=== PATIENT | female | born 1985 | race Two or more races ===

== ENCOUNTER 2021-05-11 12:14 | Emergency (ER) | payer SELFPAY ==
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
--- NOTE | 2021-05-12 06:41 | US ---
Left lower extremity deep venous ultrasound: Duplex and color Doppler evaluation was obtained of the left common femoral, proximal greater saphenous, superficial femoral, popliteal, posterior tibial and peroneal veins. Right common femoral vein was also evaluated. Comparison: No prior venous imaging is available. Findings: Visualized veins show normal phasic flow, augmentation and compression. Impression: 1. No findings of deep venous thrombosis within the left lower extremity or within the right common femoral vein. Diagnostic code #1 I agree with preliminary report from ad, finalized on 05/11/21, 5:35 PM CDT, code 1
== END 2021-05-11 17:02 | disposition home or self-care (01) ==
LOC: JD.ED 12:14
DX: M79.662 Pain in left lower leg (principal); F17.290 Nicotine dependence, other tobacco product, uncomplicated; Z88.8 Allergy status to other drugs, medicaments and biological substances; Z88.5 Allergy status to narcotic agent; Z88.0 Allergy status to penicillin
CPT/HCPCS: 36415; 80053; 81001; 83735; 84703; 85025; 93971-26-LT; 93971-LT; 99284-25

== ENCOUNTER 2021-07-22 13:21 | Emergency (ER) | payer MEDICAID ==
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
== END 2021-07-22 14:17 | disposition home or self-care (01) ==
LOC: JD.ED 13:21
DX: F93.9 Childhood emotional disorder, unspecified (principal); L30.9 Dermatitis, unspecified; Z88.5 Allergy status to narcotic agent; Z88.8 Allergy status to other drugs, medicaments and biological substances; Z88.0 Allergy status to penicillin
CPT/HCPCS: 99284